=== PATIENT | female | born 1955 | race Two or more races ===

== ENCOUNTER 2018-01-31 12:49 | Day surgery (SDC) | payer BC ==
[2018-01-31] MEDS ORDERED: PROPOFOL 60 ML (15:06)
== END 2018-01-31 17:15 | disposition home or self-care (01) ==
LOC: GIL 12:49
DX: Z12.11 Encounter for screening for malignant neoplasm of colon (principal); D12.2 Benign neoplasm of ascending colon; K62.1 Rectal polyp; K64.8 Other hemorrhoids; K29.50 Unspecified chronic gastritis without bleeding
CPT/HCPCS: 43239; 88305; 88312